=== PATIENT | female | born 1980 | race Caucasian/White ===

== ENCOUNTER 2017-01-20 17:33 | Outpatient (CLI) | payer BC ==
[~2017-01-20] VITALS: Ht 160 cm; Wt 79.1 kg
[~2017-01-20 17:33] MED LIST: IBUP-1223 PO; LABE200T3 PO; NIFE60TA2 PO; OXYC-302 PO; SENN1TAB25 PO
[2017-01-20 17:46] VITALS: BP 153/91
[2017-01-20 18:58] LABS: HEMATOCRIT 34.9 % (34.6-47.8); WHITE BLOOD COUNT 10.2 x10^3/uL (3.4-10)
[2017-01-20 19:08] LABS: ASPARTATE AMINO TRANSFERASE 19 U/L (15-37); BLOOD UREA NITROGEN 10 mg/dL (7-18)
== END 2017-01-20 19:40 | disposition home or self-care (01) ==
LOC: LDOP 17:33
PROVIDERS: ATTEND Obstetrics & Gynecology
DX: O09.523 Supervision of elderly multigravida, third trimester (principal); O36.8130 Decreased fetal movements, third trimester, not applicable or unspecified; Z3A.00 Weeks of gestation of pregnancy not specified
CPT/HCPCS: 36415; 59025; 80053; 81003; 82570; 84156; 84550; 85025; 87086; 99201; G0463

== ENCOUNTER 2017-02-07 15:43 | Outpatient (CLI) | payer BC ==
[~2017-02-07] VITALS: Ht 157.5 cm; Wt 80.5 kg
[2017-02-07 16:06] VITALS: BP 160/91
[2017-02-07 16:30] LABS: HEMATOCRIT 35.4 % (34.6-47.8); HEMOGLOBIN 12.3 g/dL (11.7-16.4); WHITE BLOOD COUNT 11.2 x10^3/uL (3.4-10)
[2017-02-07 16:34] LABS: BLOOD UREA NITROGEN 9 mg/dL (7-18)
[2017-02-07 16:38] LABS: ASPARTATE AMINO TRANSFERASE 16 U/L (15-37)
== END 2017-02-07 17:42 | disposition home or self-care (01) ==
LOC: LDOP 15:43
PROVIDERS: ATTEND Obstetrics & Gynecology
DX: O09.513 Supervision of elderly primigravida, third trimester (principal); O13.3 Gestational [pregnancy-induced] hypertension without significant proteinuria, third trimester; Z3A.00 Weeks of gestation of pregnancy not specified
CPT/HCPCS: 36415; 59025; 80053; 81003; 82248; 82570; 84156; 84550; 85025; 87086; 99211; G0463

== ENCOUNTER 2017-02-24 10:22 | Outpatient (CLI) | payer BC ==
[~2017-02-24] VITALS: Ht 157.5 cm; Wt 80.0 kg
[2017-02-24 10:33] VITALS: BP 142/85
[2017-02-24 11:37] LABS: HEMATOCRIT 38.5 % (34.6-47.8); HEMOGLOBIN 13.2 g/dL (11.7-16.4); WHITE BLOOD COUNT 11.2 x10^3/uL (3.4-10)
[2017-02-24 11:48] LABS: BLOOD UREA NITROGEN 11 mg/dL (7-18)
[2017-02-24 11:58] LABS: ASPARTATE AMINO TRANSFERASE 23 U/L (15-37)
== END 2017-02-24 12:17 | disposition home or self-care (01) ==
LOC: LDOP 10:22
PROVIDERS: ATTEND Obstetrics & Gynecology
DX: O09.523 Supervision of elderly multigravida, third trimester (principal); O13.3 Gestational [pregnancy-induced] hypertension without significant proteinuria, third trimester; Z3A.37 37 weeks gestation of pregnancy
CPT/HCPCS: 36415; 59025; 80053; 81003; 82248; 82570; 84156; 84550; 85025; 99211; G0463

== ENCOUNTER 2017-03-02 11:13 | Outpatient (CLI) | payer BC ==
[~2017-03-02] VITALS: Ht 160 cm; Wt 78.6 kg
== END 2017-03-02 12:50 | disposition home or self-care (01) ==
LOC: LDOP 11:13
PROVIDERS: ATTEND Obstetrics & Gynecology
DX: I49.9 Cardiac arrhythmia, unspecified (principal)
CPT/HCPCS: 59025; 76819; 99211; G0463

== ENCOUNTER 2017-03-05 14:46 | Outpatient (CLI) | payer BC ==
[~2017-03-05] VITALS: Ht 157.5 cm; Wt 80.9 kg
[2017-03-05 15:00] VITALS: BP 142/69
== END 2017-03-05 17:36 | disposition home or self-care (01) ==
LOC: LDOP 14:46
PROVIDERS: ATTEND Obstetrics & Gynecology
DX: O36.8130 Decreased fetal movements, third trimester, not applicable or unspecified (principal); Z3A.38 38 weeks gestation of pregnancy
CPT/HCPCS: 59025; 76819; 99211; G0463

== ENCOUNTER 2017-03-07 07:33 | Inpatient (IN) | payer BC ==
[~2017-03-07] VITALS: Ht 157.5 cm; Wt 80.5 kg
[2017-03-07] MEDS ORDERED: SODIUM CITRATE/CITRIC ACID 30 ML UDC ONE (09:57)
[2017-03-07] MEDS ORDERED: METOCLOPRAMIDE 5 MG/ML, 2ML ONE (09:57)
[2017-03-07] MEDS ORDERED: MISOPROSTOL 200 MCG TABLET ONE (09:58)
[2017-03-07] MEDS ORDERED: NEWBORN KIT ONE (09:58)
[2017-03-07] MEDS ORDERED: OXYTOCIN 30U/ 0.9% NaCL 500ML 500 ML IV SCH (10:26)
[2017-03-07] MEDS ORDERED: LACTATED RINGERS 1,000 ML IV SCH ×2 (10:26→10:30)
[2017-03-07] MEDS ORDERED: METOCLOPRAMIDE 5 MG/ML, 2ML IV ONE (10:30)
[2017-03-07] MEDS ORDERED: SODIUM CITRATE/CITRIC ACID 30 ML UDC PO ONE (10:30)
[2017-03-07] MEDS ORDERED: LACTATED RINGERS 1,000 ML IVBOLUS ONE (10:30)
[2017-03-07] MEDS ORDERED: PLEASE ENTER HEIGHT AND WEIGHT MC SCH ×2 (10:30→11:00)
[2017-03-07 10:57] LABS: BASOPHILS # (AUTO) 0.01 x10^3/uL (0-0.1); BASOPHILS % (AUTO) 0 % (0-1); EOSINOPHILS # (AUTO) 0.13 x10^3/uL (0-0.4); EOSINOPHILS % (AUTO) 1 % (1-7); LYMPHOCYTES # (AUTO) 1.28 x10^3/uL (1-3.4); LYMPHOCYTES % (AUTO) 10 % (22-44); MD NO; MEAN CORPUSCULAR HEMOGLOBIN 31.3 pg (27.0-34.8); MEAN CORPUSCULAR HGB CONC 33.6 g/dL (32.4-35.8); MEAN CORPUSCULAR VOLUME 93.1 fL (80-100); MEAN PLATELET VOLUME 7.9 fL (7.4-10.4); MONOCYTES # (AUTO) 0.49 x10^3/uL (0.2-0.8); MONOCYTES % (AUTO) 4 % (2-9); NEUTROPHILS # (AUTO) 11.52 x10^3/uL (1.8-6.8); NEUTROPHILS % (AUTO) 86 % (42-75); PLATELET COUNT 226 x10^3/uL (130-400); RED BLOOD COUNT 4.35 x10^6/uL (3.82-5.3); RED CELL DISTRIBUTION WIDTH 13.1 % (9.6-15.2)
[2017-03-07] MEDS ORDERED: OXYTOCIN 30U/ 0.9% NaCL 500ML 500 ML ONE (11:02)
[2017-03-07 11:09] VITALS: BP 160/90
[2017-03-07] MEDS ORDERED: PREN-3 PO (11:26)
[2017-03-07] MEDS ORDERED: ASPI-515 PO (11:26)
[2017-03-07] MEDS ORDERED: morphine SULFATE/PF 0.5 MG/ML, 10ML ONE (11:40)
[2017-03-07] MEDS ORDERED: CEFAZOLIN 1,000 MG ONE (11:40)
[2017-03-07] MEDS ORDERED: ONDANSETRON 2MG/ML, 2ML ONE (11:40)
[2017-03-07] MEDS ORDERED: EPHEDRINE 50 MG/ML, 1ML ONE (11:40)
[2017-03-07] MEDS ORDERED: PHENYLEPHRINE 10 MG/ML ONE (11:40)
[2017-03-07] MEDS ORDERED: OXYTOCIN 10 UNITS/ML, 1ML ONE (11:40)
[2017-03-07] MEDS ORDERED: WATER-INJECTION,STERILE 10 ML IV ONE (11:40)
[2017-03-07] MEDS: LACTATED RINGERS 1,000 ML IV SCH ×4 (13:13→23:13)
[2017-03-07] MEDS ORDERED: CARBOPROST TROMETHAMINE 250 MCG/ML, 1ML IM PRN (13:30)
[2017-03-07] MEDS ORDERED: ONDANSETRON 2MG/ML, 2ML IV PRN (13:30)
[2017-03-07] MEDS ORDERED: ACETAMINOPHEN 325 MG TABLET PO PRN (13:30)
[2017-03-07] MEDS ORDERED: MISOPROSTOL 200 MCG TABLET PR PRN (13:30)
[2017-03-07] MEDS ORDERED: OXYcodone/APAP 5/325MG TABLET PO PRN (13:30)
[2017-03-07] MEDS ORDERED: morphine SULFATE 10 MG/ML, 1ML IVPush PRN ×2 (13:30)
[2017-03-07] MEDS ORDERED: KETOROLAC 30 MG/1 ML ONE (13:51)
[2017-03-07] MEDS ORDERED: KETOROLAC 30 MG/1 ML IV ONE (14:10)
[2017-03-07] MEDS: OXYTOCIN 30U/ 0.9% NaCL 500ML 500 ML IV SCH ×2 (14:58→23:13)
[2017-03-07 15:01] LABS: ALBUMIN 2.7 g/dL (3.4-5.0); ANION GAP 6 mmol/L (5-15); CALCIUM 8.3 mg/dL (8.5-10.1); CHLORIDE 109 mmol/L (98-107)
[2017-03-07 15:04] LABS: ALANINE AMINOTRANSFERASE 20 U/L (12-78); ALKALINE PHOSPHATASE 109 U/L (45-117); BILIRUBIN,TOTAL 0.3 mg/dL (0.2-1.0); CREATININE 0.65 mg/dL (0.55-1.02); TOTAL PROTEIN 6.3 g/dL (6.4-8.2)
[2017-03-07 15:25] VITALS: BP 142/84
[2017-03-07] MEDS: LABETALOL 100 MG TABLET PO SCH (18:49)
[2017-03-07 20:00] VITALS: BP 160/95
[2017-03-07 20:55] LABS: BASOPHILS # (AUTO) 0.05 x10^3/uL (0-0.1); BASOPHILS % (AUTO) 0 % (0-1); EOSINOPHILS % (AUTO) 1 % (1-7); LYMPHOCYTES # (AUTO) 1.31 x10^3/uL (1-3.4); LYMPHOCYTES % (AUTO) 10 % (22-44); MD NO; MEAN CORPUSCULAR HEMOGLOBIN 31.4 pg (27.0-34.8); MEAN CORPUSCULAR HGB CONC 33.8 g/dL (32.4-35.8); MEAN CORPUSCULAR VOLUME 92.7 fL (80-100); MEAN PLATELET VOLUME 7.7 fL (7.4-10.4); MONOCYTES % (AUTO) 5 % (2-9); NEUTROPHILS % (AUTO) 84 % (42-75); PLATELET COUNT 195 x10^3/uL (130-400); RED BLOOD COUNT 4.02 x10^6/uL (3.82-5.3); RED CELL DISTRIBUTION WIDTH 13.8 % (9.6-15.2)
[2017-03-07 23:50] VITALS: BP 150/89
[2017-03-08] MEDS: OXYcodone/APAP 5/325MG TABLET PO PRN ×4 (04:28→16:47)
[2017-03-08] MEDS: IBUPROFEN 600 MG TABLET PO PRN ×4 (04:28→22:33)
[2017-03-08 04:34] VITALS: BP 143/87
[2017-03-08] MEDS: LACTATED RINGERS 1,000 ML IV SCH ×2 (05:13→09:13)
[2017-03-08] MEDS ORDERED: PRENATAL VIT/IRON/FA 1 EACH TABLET ONE (07:56)
[2017-03-08] MEDS ORDERED: DOCUSATE 100 MG CAPSULE ONE (07:56)
[2017-03-08 07:58] VITALS: BP 130/76
[2017-03-08] MEDS: PRENATAL VIT/IRON/FA 1 EACH TABLET PO SCH (08:00)
[2017-03-08] MEDS: LABETALOL 100 MG TABLET PO SCH ×2 (08:01→18:27)
[2017-03-08] MEDS ORDERED: BISACODYL 10 MG SUPP PR PRN (08:30)
[2017-03-08] MEDS: DOCUSATE 100 MG CAPSULE PO SCH ×2 (09:00→21:18)
[2017-03-08] MEDS: OXYTOCIN 30U/ 0.9% NaCL 500ML 500 ML IV SCH (09:13)
[2017-03-08 12:01] VITALS: BP 132/81
[2017-03-08 18:27] VITALS: BP 157/82
[2017-03-08 20:00] VITALS: BP 144/89
[2017-03-09] MEDS: OXYcodone/APAP 5/325MG TABLET PO PRN ×2 (01:46→05:27)
[2017-03-09] MEDS: IBUPROFEN 600 MG TABLET PO PRN ×2 (05:26→15:27)
[2017-03-09 08:45] VITALS: BP 126/71
[2017-03-09] MEDS: LABETALOL 100 MG TABLET PO SCH ×2 (08:49→18:10)
[2017-03-09] MEDS: DOCUSATE 100 MG CAPSULE PO SCH ×2 (08:49→21:00)
[2017-03-09] MEDS: PRENATAL VIT/IRON/FA 1 EACH TABLET PO SCH (08:49)
[2017-03-09 18:00] VITALS: BP 150/93
[2017-03-09 20:48] VITALS: BP 143/92
[2017-03-10] MEDS: IBUPROFEN 600 MG TABLET PO PRN (05:28)
[2017-03-10] MEDS: DOCUSATE 100 MG CAPSULE PO SCH (10:07)
[2017-03-10] MEDS: PRENATAL VIT/IRON/FA 1 EACH TABLET PO SCH (10:07)
[2017-03-10] MEDS: LABETALOL 100 MG TABLET PO SCH (10:07)
[2017-03-10] MEDS ORDERED: OXYC-302 PO (12:04)
[2017-03-10] MEDS ORDERED: IBUP-1222 PO (12:06)
[2017-03-10] MEDS ORDERED: SENN-1 PO (12:07)
== END 2017-03-10 13:58 | disposition home or self-care (01) | DRG 766 ==
LOC: LDIP 10:23 → 2NW 15:25
PROVIDERS: ADMIT Obstetrics & Gynecology; ATTEND Obstetrics & Gynecology
PROC: 10D00Z1 Extraction of Products of Conception, Low, Open Approach (ICD-10-PCS; principal; 2017-03-07)
DX: O34.211 Maternal care for low transverse scar from previous cesarean delivery (principal); O16.4 Unspecified maternal hypertension, complicating childbirth; Z37.0 Single live birth; O77.0 Labor and delivery complicated by meconium in amniotic fluid; O69.81X0 Labor and delivery complicated by cord around neck, without compression, not applicable or unspecified; O76 Abnormality in fetal heart rate and rhythm complicating labor and delivery; Z3A.38 38 weeks gestation of pregnancy; Z79.82 Long term (current) use of aspirin
CPT/HCPCS: 36415; 80053; 82803; 84550; 85025; 86850; 86900; 88305; J0690; J1885; J2274; J2405; J2370; J2590; J2765; J7120